=== PATIENT | female | born 1970 | race Caucasian/White ===

== ENCOUNTER → 2020-11-23 03:23 | Outpatient (CLI) | payer BC, SELFPAY ==
[2020-11-24 04:06] LABS: SARS-CoV-2 RNA PCR Negative
== END ==
PROVIDERS: PCP Family Medicine Adolescent Medicine; Visit Provider Internal Medicine Gastroenterology
DX: Z01.812 Encounter for preprocedural laboratory examination (principal); Z20.822 Contact with and (suspected) exposure to COVID-19
CPT/HCPCS: C9803; U0003; U0005

== ENCOUNTER 2020-11-26 01:59 | Day surgery (SDC) | payer BC, SELFPAY ==
[2020-11-20 13:12] VITALS: BMI 34.1
--- NOTE | 2020-11-26 06:47 | PM.HPGS ---
History of Present Illness History of Present Illness Consent: Risks, benefits, and alternatives have been discussed and questions answered. Patient agrees to proceed with procedure. Chief complaint: neoplasm screening Narrative: Juliann Hernandez is a 50 year old female referred for colon cancer screening. Review of Systems Review of Systems: All systems reviewed & are unremarkable except as noted in HPI and below PMFSH Past Medical History Medical History Hyperlipidemia Obesity Smoker Social History Social History Years smoked: 30 Smoking status: Current every day smoker Tobacco type: cigarettes Alcohol intake: current Drinks per week: 5 Living arrangements: alone Spiritual care concerns: No Meds Home Medications and Allergies Home Medications Medication Instructions Recorded Confirmed Type atorvastatin 80 mg PO DAILY 11/20/20 11/26/20 History diclofenac sodium 7 mg PO BID 11/20/20 11/26/20 History pantoprazole 40 mg PO DAILY 11/20/20 11/26/20 History venlafaxine 112.5 mg PO BID 11/20/20 11/26/20 History Allergies Allergy/AdvReac Type Severity Reaction Status Date / Time No Known Allergies Allergy Verified 11/26/20 08:54 Exam Resp: Auscultation: clear to auscultation bilaterally Cardio: Rate: regular rate Rhythm: regular rhythm GI: GI Palp: Yes Soft to palpation and No Tenderness to palpation present (GI) Assessment and Plan Assessment and plan (1) Colon cancer screening: Code(s): Z12.11 - Encounter for screening for malignant neoplasm of colon Status: Acute Assessment and Plan: Colonoscopy with possible biopsy or polypectomy or cautery or injection of substances.
[2020-11-26 08:55] VITALS: BP 134/87; PULSE 94; RESP 16; TEMP 36.2; O2SAT 97; BMI 32.8
[2020-11-26] MEDS: LACTATED RINGERS 1,000 ML 150 ML IV CONT (09:06)
--- NOTE | 2020-11-26 09:18 | WPDANESEPPF ---
Anes - Initial Pre Proc Eval Procedure: Operation Date: 11/26/20 09:30 Proposed Procedures p Screening Colonoscopy - Pancho Boucher MD Date/Time: 11/26/20 09:18 Surgeon: Pancho Boucher MD Pre Op Diagnosis: neoplasm screening Patient Data Age: 50 Gender: F Height: 1.65 m Weight: 89.4 kg Last Vital Signs Temp 36.2 C L 11/26/20 08:55 Pulse 94 11/26/20 08:55 Resp 16 11/26/20 08:55 BP 134/87 11/26/20 08:55 Pulse Ox 97 11/26/20 08:55 Allergies Allergy/AdvReac Type Severity Reaction Status Date / Time No Known Allergies Allergy Verified 11/26/20 08:54 Home Medications Medication Instructions Recorded Confirmed Type atorvastatin 80 mg PO DAILY 11/20/20 11/26/20 History diclofenac sodium 7 mg PO BID 11/20/20 11/26/20 History pantoprazole 40 mg PO DAILY 11/20/20 11/26/20 History venlafaxine 112.5 mg PO BID 11/20/20 11/26/20 History Patient hx anesthesia problems: none Family hx anesthesia problems: none PMFSH Past Medical History Medical History Hyperlipidemia Obesity Smoker Social History Social History Years smoked: 30 Smoking status: Current every day smoker Tobacco type: cigarettes Alcohol intake: current Drinks per week: 5 Living arrangements: alone Spiritual care concerns: No Anes - Eval Final PreProcedure Day of Procedure 11/26/20 09:18 Patient weight: obese Heart: regular rate and rhythm Lungs: clear to auscultation Airway: Mallampati scale class II Neurological: alert and oriented Last oral intake: >/= 8 hours ASA classification: III Emergent: no Anesthetic plan: proceed Anesthesia type and monitoring: general GIVS and standard monitoring Informed Consent: The patient's anesthetic plan and its attendant risks and benefits were discussed with the patient/family/POA. Questions were solicited and answers provided to the satisfaction of the patient/family/POA.
[2020-11-26 10:04] VITALS: BP 140/88; PULSE 78; RESP 18; O2SAT 98
[2020-11-26 10:14] VITALS: BP 150/85; PULSE 76; RESP 15; O2SAT 99
[2020-11-26 10:24] VITALS: BP 146/89; PULSE 72; RESP 16; O2SAT 100
--- NOTE | 2020-11-26 10:35 | SUR.PHASEII ---
Patient's L. hand hit up against wall during transport between intraop to post op. Patient states that hand is a little sore, but ok overall. Left hand has small bump where incident occurred.
== END 2020-11-26 10:37 | disposition home or self-care (01) ==
PROVIDERS: PCP Family Medicine Adolescent Medicine; Visit Provider Internal Medicine Gastroenterology
PROC: 0DJD8ZZ Inspection of Lower Intestinal Tract, Via Natural or Artificial Opening Endoscopic (ICD-10-PCS; CPT 45378; principal; 2020-11-26 09:30)
DX: Z12.11 Encounter for screening for malignant neoplasm of colon (principal); E66.9 Obesity, unspecified; F17.200 Nicotine dependence, unspecified, uncomplicated
CPT/HCPCS: 45378; C9803; J2704; J7120; U0003; U0005

== ENCOUNTER 2022-05-28 08:06 | Emergency (ER) | payer BC, SELFPAY ==
--- NOTE | 2022-05-28 08:16 | ED.URI ---
HPI - URI/Sore Throat General Chief Complaint: Upper Respiratory Infection Stated Complaint: Cough Time Seen by Provider: 05/28/22 08:16 Source: patient Mode of arrival: ambulatory Limitations: no limitations History of Present Illness HPI Narrative: 52-year-old female presents with complaint sinus congestion, cough for approximately 10 days. Reports congestion getting progressively worse With sinus pressure. Is taking [id number] multi symptom relief Mucinex and continues to have symptoms. Reports that cough is worse at night. Afebrile. Denies chest pain and shortness of breath. Patient is a current everyday smoker. No history of asthma or COPD. All systems reviewed and negative except as noted above. Related Data Allergies Allergy/AdvReac Type Severity Reaction Status Date / Time amoxicillin Allergy Mild rash Verified 05/28/22 08:14 Review of Systems Review of Systems: CONSTITUTIONAL: Denies fever, chills, or sweats. EYES: Denies visual changes, redness, or discharge. ENT: Reports rhinorrhea, congestion, sore throat. Denies otalgia. CARDIOVASCULAR: Denies chest pain, palpitations, or edema. RESPIRATORY: reports cough. Denies dyspnea. GASTROINTESTINAL: Denies abdominal pain, nausea, vomiting, or diarrhea. GENITOURINARY: Denies dysuria or hematuria. SKIN: Denies rash or itching. MUSCULOSKELETAL: Denies back pain, joint pain, or myalgia. NEUROLOGIC: Denies headache, numbness, or weakness. PSYCHIATRIC: Denies anxiety or depression. All other systems reviewed are negative, except as documented in HPI. [facility] Past Medical History Medical History Hyperlipidemia Obesity Smoker Family History Family History (Updated 08/29/21 @ 09:59 by Andreea Huerta MA) Other Breast cancer Grandparent Diabetes mellitus Sibling Diabetes mellitus Mother Hypertension Social History Social History (Updated 08/29/21 @ 10:00 by Andreea Huerta MA) Years smoked: 30 Smoking status: Current every day smoker Tobacco type: cigarettes Second hand tobacco smoke exposure: Yes Alcohol intake: current Drinks per week: 5 Substance use: never Substance use type: does not use Living arrangements: alone Occupation/Education: occupation Gender identity (if verbalized by the patient): Female Sexual Orientation (if Verbalized by the Patient): Straight or Heterosexual Spiritual care concerns: No Agree to blood products: Yes Comments At time of signature, agree with nursing past medical, surgical, social and family history. There is no relevant family history pertinent to the presenting complaint. Exam Narrative: GENERAL: This is a well-nourished, well-developed patient, in no apparent distress. HEAD: normocephalic, atraumatic. EYES: PERRL. Sclera clear/white. Vision is grossly intact. EARS: External ears normal, auditory canals clear and without drainage, TMs normal without perforation. Hearing grossly intact. NOSE: External nose normal with minor congestion, erythema to both nares. Bilateral maxillary sinus tenderness. THROAT: Mucous membranes moist, Postnasal drainage. NECK: Neck supple, non-tender without lymphadenopathy, masses or thyromegaly. CARDIOVASCULAR: Regular rate and rhythm without murmurs, gallops, or rubs. RESPIRATORY: Clear to auscultation. Breath sounds equal bilaterally. No wheezes, rales, or rhonchi. SKIN: warm, Dry, intact with no suspicious lesions or rash, good texture and turgor. NEURO: awake, alert, and oriented to person, place and time. There were no obvious focal neurologic abnormalities. EXTREMITIES: No joint tenderness, effusion, or edema noted. Course Course Level of Care: Express Care Visit Vital Signs Vital signs: Reviewed MDM - URI/Sore Throat MDM Narrative Medical decision making narrative: Patient is aware of diagnosis, understands and agrees to treatment plan. Anticipatory guidance given. Patient agrees to follow-up as directed and i
[2022-05-28 08:17] VITALS: BP 154/92; PULSE 82; RESP 16; TEMP 36.8; O2SAT 98
== END 2022-05-28 08:37 | disposition home or self-care (01) ==
PROVIDERS: Emergency Provider Nurse Practitioner Family; PCP Family Medicine Adolescent Medicine
DX: J01.90 Acute sinusitis, unspecified (principal); R05.9 Cough, unspecified; F17.210 Nicotine dependence, cigarettes, uncomplicated; E78.5 Hyperlipidemia, unspecified; E66.9 Obesity, unspecified; Z68.34 Body mass index [BMI] 34.0-34.9, adult
CPT/HCPCS: 99213; G0463

== ENCOUNTER 2024-03-14 09:33 | Emergency (ER) | payer SELFPAY ==
[2024-03-14] VITALS (43 sets, daily range): BP systolic 116–140; BP diastolic 66–121; PULSE 57–82; RESP 10–23; TEMP 36.2–36.8; O2SAT 96–100
--- NOTE | ~2024-03-14 | XR_ITS ---
EXAMINATION: XR ankle LT 2V DATE: 03/14/2024 10:20 INDICATION: Postreduction left ankle fracture TECHNIQUE: Anteroposterior and lateral views of the left ankle were obtained. COMPARISON: None. FINDINGS: Interval partial reduction of the previously seen left ankle fracture with Fiberglas splinting about the left foot and ankle which mildly obscures fine bone and soft tissue detail. There is residual 6 m m posterior and 5 mm lateral displacement and without angulation of the oblique fracture of the dista l left fibular metaphyseal region. There is also been significant improvement of alignment of the pos terior malleolar fracture of the distal left tibia with approximately 4 mm residual posterior and pro ximal displacement and mild posterior angulation. There is no evident medial malleolar fracture. Ankl e mortise appears congruent. Small fracture fragment along the anterior margin of the tibial plafond and. Joint spaces are relatively preserved. Moderate-sized Achilles and plantar calcaneal spurs. IMPRESSION: 1. Significant improvement in alignment post reduction of the lateral and posterior malleolar fractur es of the left ankle with mild central displacement as detailed above. Reviewed, dictated and finalized at location A. RTMENT CHAIR IMPRESSION: 1. Significant improvement in alignment post reduction of the lateral and poste rior malleolar fractures of the left ankle with mild central displacement as de tailed above.
--- NOTE | ~2024-03-14 | CT_ITS ---
EXAMINATION: CT ankle LT wo con DATE: 03/14/2024 13:03 INDICATION: Trimalleolar left ankle fracture. TECHNIQUE: Computed tomography (CT) of the left ankle was performed without intravenous contrast. Aut omated exposure control and iterative reconstruction technique were employed. The dose-length product was 418.51 mGy-cm. COMPARISON: Left ankle radiographs 03/14/2024 FINDINGS: There is a comminuted fracture of distal fibula. The main distal fracture fragment demonstr ates 8 mm posterior displacement, 6 mm shortening, and 2 mm lateral displacement. There is a comminut ed fracture of posterior malleolus. The main posterior fracture fragment demonstrates 4 mm proximal d isplacement and 4 mm lateral displacement. There is a comminuted, predominantly oblique fracture of m edial malleolus. The main distal fracture fragment demonstrates 4 mm distraction anteriorly. There ar e multiple loose bodies in the ankle joint. There is mild osteoarthritis of the ankle joint and many of the midfoot joints. There are enthesophytes at the posterior and plantar aspects of calcaneal tube rosity. IMPRESSION: 1. Trimalleolar ankle fracture. Reviewed, dictated and finalized at location A. ER SEAL
--- NOTE | ~2024-03-14 | XR_ITS ---
Left ankle Technique: AP, oblique, and lateral views were obtained. Clinical History: Performed Findings: There is an oblique, markedly displaced fracture of the distal fibular shaft. There is comp lete medial dislocation of both the distal tibia and fibula with respect to the talar dome. Probable fracture of the medial malleolus. Questionable posterior malleolus fracture. There is marked widening of the anterior aspect of the ankle mortise on lateral view. There is diffuse soft tissue swelling. Impression: Markedly displaced oblique fracture of the distal fibular shaft with complete medial dislocation of t he distal tibia and fibula with respect to the talar dome. Suspected additional medial and posterior malleolus fractures, these are somewhat poorly delineated d ue to limitations in patient positioning. Reviewed, dictated and finalized at location M. MAKING MACHINE OPERATOR Impression: Markedly displaced oblique fracture of the distal fibular shaft with complete m edial dislocation of the distal tibia and fibula with respect to the talar dome . Suspected additional medial and posterior malleolus fractures, these are somewh at poorly delineated due to limitations in patient positioning.
[2024-03-14] MEDS: HYDROmorphone HCL INJ (*CRX) 1 MG/ML SYR IV PUSH (09:45)
[2024-03-14] MEDS: ONDANSETRON INJ 4 MG/2 ML VIAL IV PUSH (09:45)
--- NOTE | 2024-03-14 09:52 | ED_ITS ---
HPI - Fall General Chief Complaint: Fall Stated Complaint: fall, ankle deformity Time Seen by Provider: 03/14/24 09:49 Source: patient Mode of arrival: EMS Limitations: no limitations History of Present Illness HPI Narrative: Patient presents with an obvious left ankle deformity after she slipped and fell on ice. She is not on anticoagulation. She is in tremendous pain. No prior orthopedic procedure in no prior injuries to this extremity. Related Data Allergies Allergy/AdvReac Type Severity Reaction Status Date / Time amoxicillin Allergy Mild rash Verified 03/14/24 16:20 PMFSH Past Medical History Medical History Hyperlipidemia Obesity Smoker Family History Family History Other Breast cancer Grandparent Diabetes mellitus Sibling Diabetes mellitus Mother Hypertension Social History Social History Years smoked: 30 Smoking status: Current every day smoker Tobacco type: cigarettes Second hand tobacco smoke exposure: Yes Alcohol intake: current Drinks per week: 5 Substance use: never Substance use type: does not use Living arrangements: alone Occupation/Education: occupation Gender identity (if verbalized by the patient): Female Sexual Orientation (if Verbalized by the Patient): Straight or Heterosexual Spiritual care concerns: No Agree to blood products: Yes Exam Narrative: GENERAL: well-nourished, in moderate acute distress. HEAD: Normocephalic, atraumatic. EYES: Non injected, non icteric ENT: Nares clear, no rhinorrhea or epistaxis. Mallampati 2. Patient can open mouth wide without trismus or other significant limitation. NECK: Supple. Not particularly full. No micrognathia. CHEST: Speaking in full sentences. No respiratory distress. HEART/Cardiovascular: Regular rate and rhythm. Difficult to palpate left DP. Thready Dopplerable pulse at DP on left. ABDOMEN: Soft, nondistended. EXTREMITIES: Obvious deformity to left ankle with left ankle joint dislocated and left foot externally rotated. SKIN: Warm, dry, no rash. Skin intact but ecchymotic. NEURO: Alert and oriented x3. PSYCH: Congruent mood and affect. Course Vital Signs Vital signs: Vital Signs Pulse Oximetry 100 03/14/24 09:41 Temperature 98.3 F 03/14/24 16:10 Pulse Rate 61 03/14/24 16:10 Respiratory Rate 15 03/14/24 16:10 Blood Pressure 121/67 03/14/24 16:10 Pulse Oximetry 99 03/14/24 16:10 Oxygen Delivery Room Air 03/14/24 11:05 Oxygen Flow Rate 2 03/14/24 10:10 Procedures Orthopedic Fracture Reduction Fracture #1: Fracture Reduction date: 03/14/24 Time Out Performed: Yes Side: left Fracture Reduction Location: tibia and fibula Analgesia: procedural sedation Pre-Procedure Neuro Vascular Exam: abnormal (thready pulse; faintly Do pplerable) Technique: direct manipulation and traction/counter-traction Post Reduction X-rays Demonstrate: acceptable reduction Post-reduction neuro exam: intact Post-reduction vascular exam: intact Splint Applied: Yes Patient Tolerated Procedure: well and no complications Orthopedic Joint Reduction Joint #1: Orthopedic Joint Reduction Date: 03/14/24 Time Out Performed: Yes Side: left Joint Reduction Location: ankle Analgesia: procedural sedation Pre-Procedure Neuro Vascular Exam: abnormal (as above) Technique used: traction/counter-traction Post-reduction neuro exam: intact Post-reduction vascular: intact Post Reduction X-Ray Obtained: Yes Post Reduction X-Ray Results: reduced Splint Applied: Yes Patient Tolerated Procedure: well and no complications Orthopedic Splinting/Casting Injury #1: Splinting/Casting Date: 03/14/24 Side: left Lower Extremity Injury Location: ankle Lower Extremity Immobilizer: posterior splint and stirrup splint Splint: prefabricated OCL: stirrup Pre-Procedure Neuro Vascular Exam: abnormal Post-Procedure Neuro Vascular Exam: normal Additional Comments: assisted RICHARD Jade with applying splint Procedural Sedation Procedural Sedation #1: Procedural Sedation Date: 03/14/24 Presedation Evaluation: Airway evaluated and without obvious complications anticipated, hemodynamically stable. Has received anesthesia before without complication. Allergy (amoxicillin) reviewed. Provider Performed: sedation and procedure Time Out: performed Informed Consent Obtained: yes Equipment in Room: bag and mask, capnography, surveillance monitor, crash cart, oxygen, pulse oximeter and suction Plan for Sedation: moderate sedation ASA Class: II (hyperlipidema, obesity, smoker per review of EMR) Mallampati Classification: class II NPO Status: unknown Explanation to Patient/Family: Risk/Benefits/Alternatives and Pt/Family agreed with plan Pt. Educated on Procedural Sedation: Yes Preparation: surveillance monitor applied, pulse oximeter, supplemental O2 applied (after brief hypoxia), suction/airway equipment at bedside and IV secured Fentanyl: IV Fentanyl dose (mcg): 50 IV Propofol dose (mg): 75 Patient Tolerated Procedure: well Interventions: oxygen applied and assist by BVM Additional Comments: brief hypoxia and hypoventilation but normalized with supplemental oxygen and required bagging via BVM for approximately 15-30seconds Pulse Oximetry Interpretation Digit-Finger: Pulse Oximetry Interpretation Date: 03/14/24 Initial pulse oximetry readin Additional Comments: desaturated during sedation, supplemental O2 applied, improved to 92% then hypoventilation, BVM for 15-30 seconds with improved saturation to >96% and sternal rub for spontaneous respirations then saturating and with appropriate rate MDM - Fall MDM Narrative Medical decision making narrative: Patient presents with an obvious left ankle injury after slipping and falling on the ice. She has an obvious fracture and dislocation of this extremity and appears to be neurovascularly compromise given it is difficult to palpate a DP pulse. Thready dopplerable pulse. In the emergency department they are afebrile with vital signs within normal limits. Procedural sedation and dislocation/fracture reduction performed as above. Discussed with Dr. Chou who recommends getting CT imaging. Discussed findings with him and he is concerned based on the degree of comminuted posterior malleolus fracture that she would require the [facility] a tertiary care service as this may require a posterior surgical approach and especially given her age. He does note that if they are comfortable seeing her outpatient as an alternative he would strongly recommend that she remain absolutely nonweightbearing and recline as much as possible with her foot elevated above the level of the heart. Patient has never received care through either of the other main hospital systems and she states that and she does not particularly have a preference but ultimately states that [facility] would be fine. Given this is a trauma [facility] transfer center does connect me with ED attending Dr Alcocer who will be accepting. Patient is made aware that she may sit in the waiting room for considerable amount of time and that there is no guarantee that surgical intervention would happen today. She verifies understanding. We did discuss that she has the option of going by ambulance which we would arrange versus private vehicle (patient had noted concerns of cost based on the fact that she does not have insurance) and she did decide ambulance. EMS transportation arranged. Critical Care: 1 or more vital organ systems impaired with a high probability of loss/morbidity of limb requiring frequent personal assessment and manipulation of the patient's condition. This included time spent evaluating/speaking with the patient, reviewing/interpreting imaging studies, discussing the case with consultants (orthopedic / transfer team), retrieving data and reviewing charts, monitoring for decompensation, documenting the visit, and performing bundled procedures EXCLUSIVE of separately billed procedures. Imaging Data Attestation: I personally reviewed and interpreted this imaging study as follows: My impression: Obvious fracture and dislocation with improvement on postprocedure imaging on my independent interpretation Radiologist's impression: Impressions Ankle X-Ray 03/14/24 10:16 Impression: Markedly displaced oblique fracture of the distal fibular shaft with complete medial dislocation of the distal tibia and fibula with respect to the talar dome. Suspected additional medial and posterior malleolus fractures, these are somewhat poorly delineated due to limitations in patient positioning. Ankle X-Ray 03/14/24 10:24 IMPRESSION: 1. Significant improvement in alignment post reduction of the lateral and posterior malleolar fractures of the left ankle with mild central displacement as detailed above. Ankle CT 03/14/24 13:06 IMPRESSION: 1. Trimalleolar ankle fracture. Critical Care Time Critical Care Time Critical Care Time: Yes Total Critical Care Time: 30 Discharge Plan Discharge Clinical Impression: Fall with injury, Fracture of distal end of fibula, Dislocation of distal tibia, Dislocation of distal end of fibula, Fracture of lateral malleolus, Closed fracture of posterior malleolus Patient Disposition: Acute Care Hospital Condition: Stable Prescriptions: No Action loratadine [Claritin] 10 mg tablet 10 mg PO DAILY Qty: 30 0RF Hold Instructions: needs appt aripiprazole [Abilify] 2 mg tablet 2 mg PO QHS Qty: 30 0RF atorvastatin 80 mg tablet 80 mg PO DAILY Qty: 90 1RF Hold Instructions: Needs APPT pantoprazole 40 mg tablet,delayed release (DR/EC) See Rx Instructions .ROUTE .COMPLEX Qty: 90 1RF Hold Instructions: needs appt Dose Instruction: TAKE 1 TABLET BY MOUTH EVERY DAY Rx Instructions: TAKE 1 TABLET BY MOUTH EVERY DAY diclofenac sodium 75 mg tablet,delayed release (DR/EC) 75 mg PO BID Qty: 180 2RF Hold Instructions: Needs appt venlafaxine 75 mg tablet See Rx Instructions .ROUTE .COMPLEX Qty: 120 0RF Hold Instructions: needs appt Dose Instruction: TAKE 2 TABLETS BY MOUTH TWICE A DAY Rx Instructions: TAKE 2 TABLETS BY MOUTH TWICE A DAY Follow-up/Referrals: Tulio Felipe MD [Primary Care Provider] - Time of Disposition: 15:09
[2024-03-14] MEDS: fentaNYL CITRATE INJ (*CRX) 100 MCG/2 ML VIAL 50 MCG IV PUSH ×2 (10:05→16:24)
[2024-03-14] MEDS: PROPOFOL IV EMULSION 200 MG/20 ML VIAL 75 MG IV PUSH (10:05)
[2024-03-14] MEDS: ACETAMINOPHEN 500 MG TABLET 1000 MG PO (12:46)
[2024-03-14] MEDS: MORPHINE SULFATE (*CRX) 4 MG/ML INJ IV PUSH (13:40)
== END 2024-03-14 16:02 | disposition short-term general hospital (02) ==
PROVIDERS: Emergency Provider Student in an Organized Health Care Education/Training Program; PCP Family Medicine Adolescent Medicine
DX: S82.832A Other fracture of upper and lower end of left fibula, initial encounter for closed fracture (principal); S82.852A Displaced trimalleolar fracture of left lower leg, initial encounter for closed fracture; S93.05XA Dislocation of left ankle joint, initial encounter; W00.0XXA Fall on same level due to ice and snow, initial encounter; E78.5 Hyperlipidemia, unspecified; F17.210 Nicotine dependence, cigarettes, uncomplicated
CPT/HCPCS: 27788; 73600; 73610; 73700; 96374; 96375; 96376; 99285; A9270; J1171; J2270; J2405; J2704; J3010

== ENCOUNTER 2024-08-12 01:24 | Day surgery (SDC) | payer OTHER, SELFPAY ==
[2024-08-03 11:38] VITALS: BMI 31.4
--- OUTSIDE RECORDS SUMMARY | 2024-08-12 01:27 | XMS_ITS | Referral Summary ---
Author Organization [facility] al Address [address] [place] [address] Care Team Providers Care Nuclear Medical Tech Name Role Phone Tulio Felipe MD Primary Care Prov ider Encounters Date Type Department Care Team Description 06/10/2024 11:52 AM AUTO BODY BUILDER APPRENTICE - 06/10/2024 11:59 PM AUTO BODY BUILDER APPRENTICE Hospital Encounter [facility] Radiology [address] [place] [address] Closed trimalleolar fracture of left ankle with routine healing, subsequent encounter Discharge Disposition: Discharge to home or self care 06/10/2024 12:30 PM AUTO BODY BUILDER APPRENTICE [facility] [address] [facility] 4th Floor [address] [place] [address] Closed trimalleolar fracture of left ankle with routine healing, subsequent encounter (Primary Dx) from Last 3 Months Allergies Active Allergy Reactions Criticality Noted Date Comments Amoxicillin Hives Medium 03/14/2024 Medications venlafaxine (EFFEXOR) 75 mg tablet Take 2 tablets (150 mg total) by mouth 2 (two) times a day 02/26/[address] (VOLTAREN) 75 mg EC tablet Take 1 tablet (75 mg total) by mouth 2 (two) times a day 12/25/2023 Active docosahexaenoic acid/epa (FISH OIL ORAL) Take 1 tablet by mouth every morning Active cyanocobalamin, vitamin B-12, (VITAMIN B-12 ORAL) Take 1 tablet by mouth every morning Active cholecalciferol , vitamin D3, (VITAMIN D3 ORAL) Take 1 tablet by mouth every morning Active aspirin 81 mg enteric coated tablet Take 1 tablet (81 mg total) by mouth 2 (two) times a day for 14 days For blood clot prevention. Take with food. 28 tablet 03/21/2024 Active senna-docusate (PERICOLACE) 8.6-50 mg Take 1 tablet by mouth daily 14 tablet 03/21/2024 Active senna-docusate (PERICOLACE) 8.6-50 mg Take 2 tablets by mouth 2 (two) times a day 30 tablet 1 03/28/2024 Active HYDROcodone-christo taminophen (NORCO) 5-325 mg per tabletIndicatio ns:Pain Take 1-2 tablets by mouth every 6 (six) hours as needed for pain 28 tablet 04/07/2024 Active traMADoL (ULTRAM) 50 mg tablet Take 1 tablet (50 mg total) by mouth every 6 (six) hours as needed for pain 28 tablet 04/16/2024 Active Active Problems Patient Care Coordination No te Formatting of this note migh t be different from the original. Mechanism of Injury: SLMF 03/14/24 Dx: L trimal ankle fx/dl Surgeries: 03/21/2024: ORIF L trimal ankle fx/dl Last Clinic Visit: 04/29/24 Progress to weight-bearing as tolerated in Cam boot Pain meds: OTC p.r.n. Okay to shower, do not submerge incisions Home exercise program for ankle range motion Follow-up in 6 weeks with repeat x-rays of the left ankle Upcoming Clinic Visit: 06/10/24 WBAT in CAM Boot XR Left Ankle (Orders Placed) Does Insurance Qualify for In Clinic PT? No IDPA/IDPA Problem Noted Date Diagnosed Date Closed trimalleolar fracture of left ankle, initial encounter 03/15/2024 Closed displaced trimalleola r fracture of left lower leg with routine healing 03/15/2024 Closed trimalleolar fracture of left ankle 03/14 Immunizations Immunization Administration Dates Next Due ZOSTER Recombinant 08/06/2020 Social History Tobacco Use Types Packs/Day Years Used Date Smoking Tobacco: Every Day Cigarettes 0.5 40.3 Started: 1984 Passive Smoke Exposure: Never Smokeless Tobacco: Never Tobacco Cessation:Ready to Q uit: Not Asked; Counseling Given: Yes AUDIT-C Answer Date Recorded Q1: How often do you have a drink containing alcohol? Never 04/29/2024 Q2: How many drinks containi ng alcohol do you have on a typical day when you are drinking? Patient does not drink Q3: How often do you have si x or more drinks on one occasion? Never 04/29/2024 Hunger Vital Sign Answer Date Recorded Within the past 12 months, y ou worried that your food would run out before you got the money to buy more. Never true 06/10/19 25 Within the past 12 months, t he food you bought just didn't last and you didn't have money to get more. Never true 06/10/2024 Personal Safety Answer Date Recorded Have you ever been in or are you currently in a harmful physical or emotional relationship or is someone making you feel afraid or unsafe? Denies 03/21/2024 Comments No Sex and Gender Information Value Date Recorded Sex Assigned at Not on file Legal Sex Female 5:53 PM AUTO BODY BUILDER APPRENTICE Gender Identity Not on file Sexual Orientation Not on file Last Filed Vital Signs Vital Sign Reading Time Taken Comments Blood Pressure 155/67 03/21/2024 2:10 PM AUTO BODY BUILDER APPRENTICE Pulse 83 03/21/2024 2:20 PM AUTO BODY BUILDER APPRENTICE Temperature 36.2 C (97.2 F) 03/21/2024 1:30 PM AUTO BODY BUILDER APPRENTICE Respiratory Rate 14 03/21/2024 2:20 PM AUTO BODY BUILDER APPRENTICE Oxygen Saturation 95% 03/21/2024 2:20 PM AUTO BODY BUILDER APPRENTICE Inhaled Oxygen Concentration - - Weight 78.9 kg (174 lb) 03/21/2024 8:42 AM AUTO BODY BUILDER APPRENTICE Height 162.6 cm (5' 4 ) 03/15/2024 3:12 PM AUTO BODY BUILDER APPRENTICE Body Mass Index 29.87 03/15/2024 3:12 PM AUTO BODY BUILDER APPRENTICE Plan of Treatment Not on file Medical Devices Implanted Type Area Inspector Health Care Facilities Device Identifier Shelf Expiration Date Model / Serial / Lot [employer] r[employer]o Evos Mini 38mm 5 Hole Geetha Low Profile Variable Angle Small Bone [id number] - [id number] Implanted:Qty: 1 on 03/21/2024 by Indra Landis MD at [facility] Left: Ankle [employer]/Or tho [id number] / / [employer] Evos Mini 2.7mm 4.5mm 21mm Self Tap Cortex T8 Screw Bone [id number] - [id number] Implanted:Qty: 1 on 03/21/2024 by Indra Landis MD at [facility] Left: Ankle [employer]/Or tho [id number] / / [employer] r[employer]o Evos Mini 4mm 4.5mm 34mm Variable Angle Self Retaining [id number] - [id number] Implanted:Qty: 1 on 03/21/2024 by Indra Landis MD at [facility] Left: Ankle [employer]/Or tho [id number] / / [employer] r[employer]o Evos 3.5mm 60mm Self Tap Cortex Screw Bone Sterile [id number] - [id number] Implanted:Qty: 2 on 03/21/2024 by Indra Landis MD at [facility] Left: Ankle [employer]/Or tho [id number] / / [employer]/O rtho Screw Bone Cortical St Short Thread Evos 2.4x16mm Ss [id number] - [id number] Implanted:Qty: 1 on 03/21/2024 by Indra Landis MD at [facility] Left: Ankle [employer]/Or tho [id number] / / [employer] r[employer]o Evos Mini 140mm 20 Hole Strenght Low Profile Variable Angle Small [id number] - [id number] Implanted:Qty: 1 on 03/21/2024 by Indra Landis MD at [facility] Left: Ankle [employer]/Or tho [id number] / / [employer]/O rtho 2.7mm 4.5mm 34mm Self Retaining Screwdriver Self Tap Flat Head [id number] - [id number] Implanted:Qty: 1 on 03/21/2024 by Indra Landis MD at [facility] Left: Ankle [employer]/Or tho [id number] / / [employer]/O rtho 2.7mm 4.5mm 28mm Self Tap Cortex T8 2mm Screw Bone Evos [id number] - [id number] Implanted:Qty: 1 on 03/21/2024 by Indra Landis MD at [facility] Left: Ankle [employer]/Or tho [id number] / / [employer] r[employer]o Evos Mini 2.7mm 4.5mm 40mm Self Tap Log Snaker Long Bone Small Bone [id number] - [id number] Implanted:Qty: 1 on 03/21/2024 by Indra Landis MD at [facility] Left: Ankle [employer]/Or tho [id number] / / [employer]o Evos 2.7mm 9mm Self Tap Self Retaining Drive Small Bone Long Bone [id number] - [id number] Implanted:Qty: 2 on 03/21/2024 by Indra Landis MD at [facility] Left: Ankle [employer]/Or tho [id number] / / [employer]/O rtho 2.7mm 4.5mm 20mm Self Retaining Screwdriver Self Tap Flat Head [id number] - [id number] Implanted:Qty: 1 on 03/21/2024 by Indra Landis MD at [facility] Left: Ankle [employer]/Or tho [id number] / / [employer] r[employer]o Evos 2.7mm 4.5mm 10mm Self Tap Cortex T8 Screw Bone Mini Plate [id number] - [id number] Implanted:Qty: 1 on 03/21/2024 by Indra Landis MD at [facility] Left: Ankle [employer]/Or tho [id number] / / [employer]/O rtho Evos Mini 2.7mm 4.5mm 20mm Self Tap Cortex T8 Screw Bone [id number] - [id number] Implanted:Qty: 2 on 03/21/2024 by Indra Landis MD at [facility] Left: Ankle [employer]/Or tho [id number] / / Procedures Procedure Name Priority Date/Time Associated Diagnosis Comments XR ANKLE LEFT 3 OR MORE VIEWS Schedule Routine, Read Routine (OP Routine) 06/10/2024 12:00 PM AUTO BODY BUILDER APPRENTICE Closed trimalleolar fracture of left ankle with routine healing, subsequent encounter from Last 3 Months Results * XR Ankle Left 3 or More Views (06/10/2024 12:00 PM AUTO BODY BUILDER APPRENTICE) Anatomical Region Laterality Modality Lower Extremities, Ankle Left Compute d Radiography 06/10/2024 12:4 7 PM AUTO BODY BUILDER APPRENTICE Impressions 06/10/2024 12:47 PM AUTO BODY BUILDER APPRENTICE 1. Healing reduced and internally fixated trimalleolar fracture. Electronically signed by: Lukasz Elizabeth MD Narrative 06/10/2024 12:47 PM AUTO BODY BUILDER APPRENTICE EXAMINATION: XR ANKLE LEFT 3 OR MORE VIEWS HISTORY: Ankle pain. FINDINGS: Comparison 04/29/2024. Healing reduced and internally fixated trimalleolar fracture. Hardware is intact. No new fractures. Disuse osteopenia. Talar dome is intact. Joint spaces grossly preserved. Small plantar calcaneal spur and Achilles enthesophyte. Procedure Note Lukasz Elizabeth MD - 06/10/2024 EXAMINATION: XR ANKLE LEFT 3 OR MORE VIEWS HISTORY: Ankle pain. FINDINGS: Comparison 04/29/2024. Healing reduced and internally fixated trimalleolar fracture. Hardware is intact. No new fractures. Disuse osteopenia. Talar dome is intact. Joint spaces grossly preserved. Small plantar calcaneal spur and Achilles enthesophyte. IMPRESSION: 1. Healing reduced and internally fixated trimalleolar fracture. Electronically signed by: Lukasz Elizabeth MD Selvin Mckay MD IMG XR PROCEDURES Final Result from Last [address] [place] [address] IDPA [facility] Advance Directives For more information, please contact: [phone] * Full Code (Latest Code Status on File) Date Activated Date Inactivated Comments 03/15/2024 3:15 AM 03/15/2024 6:35 PM Care Teams Nuclear Medical Tech Relationship Specialty Start Date End Date Tulio Felipe MD [address] [place] [address] PCP - General Family Medicine 03/14/24
--- OUTSIDE RECORDS SUMMARY | 2024-08-12 01:27 | XMS_ITS | Clinical Summary ---
Author Organization [facility] Address [address] [place] [address] Care Team Providers Care Warehouse Pricing And Inventory Clerk Name Role Phone Tulio Felipe MD Primary Care Prov ider Allergies Active Allergy Reactions Criticality Noted Date [...] Closed trimalleolar fracture of left ankle 03/14 Encounters Date Type Department Care Team Description 06/10/2024 12:30 PM MERCHANDISING EXECUTION MANAGER [facility] [address] [place] [address] 4th [address] [place] [address] Closed trimalleolar fracture of left ankle with routine healing, subsequent encounter (Primary Dx) 06/10/2024 11:52 AM MERCHANDISING EXECUTION MANAGER - 06/10/2024 11:59 PM MERCHANDISING EXECUTION MANAGER Hospital Encounter [facility] Radiology [address] [place] [id number] Closed trimalleolar fracture of left ankle with routine healing, subsequent encounter Discharge Disposition: Discharge to home or self care from Last 3 Months Immunizations Immunization Administration Dates Next Due ZOSTER Recombinant 08/06/2020 Surgical History Surgery Date Site/Laterality Comments PLASTIC SURGERY forehead, over 20 years ago COLONOSCOPY last one Social History Tobacco Use Types Packs/Day Years [...] on file Legal Sex Female 5:53 PM MERCHANDISING EXECUTION MANAGER Gender Identity Not on file Sexual Orientation Not on file Obstetrics History Last Filed Vital Signs Vital Sign Reading Time Taken Comments Blood Pressure 155/67 03/21/2024 2:10 PM MERCHANDISING EXECUTION MANAGER Pulse 83 03/21/2024 2:20 PM MERCHANDISING EXECUTION MANAGER Temperature 36.2 C (97.2 F) 03/21/2024 1:30 PM MERCHANDISING EXECUTION MANAGER Respiratory Rate 14 03/21/2024 2:20 PM MERCHANDISING EXECUTION MANAGER Oxygen Saturation 95% 03/21/2024 2:20 PM MERCHANDISING EXECUTION MANAGER Inhaled Oxygen Concentration - - Weight 78.9 kg (174 lb) 03/21/2024 8:42 AM MERCHANDISING EXECUTION MANAGER Height 162.6 cm (5' 4 ) 03/15/2024 3:12 PM MERCHANDISING EXECUTION MANAGER Body Mass Index 29.87 03/15/2024 3:12 PM MERCHANDISING EXECUTION MANAGER Plan of Treatment Health Maintenance Due Date Last Done Comments Breast Cancer Screening-Mammogram 1969 Cervical Cancer Screening 1969 Colon Cancer Screening-Colonoscopy 1969 Depression Screening 1969 Hepatitis C Screening 1969 DTaP/Tdap/Td Vaccine (1 - Tdap) 1980 Hepatitis B Screening 1987 Regular Well Visit/Exam 18-64 1987 Pneumococcal vaccine <65 (1 of 2 - PCV) 1988 Lung Cancer Screening 2019 Zoster Vaccine (2 of 2) 10/01/2020 08/06/2020 Influenza Vaccine (Season Ended) 2024 Medical Devices Implanted Type Area Administrative Library Assistant Device Identifier Shelf Expiration Date Model / Serial / Lot [employer]O rtho Evos Mini 38mm 5 Hole Geetha Low Profile Variable Angle Small Bone [id number] - [id number] Implanted:Qty: 1 on 03/21/2024 by Indra Landis MD at [facility] Left: Ankle [employer]Or tho [id number] / / [employer] r[employer]o Evos Mini 2.7mm 4.5mm 21mm Self Tap Cortex T8 Screw Bone [id number] - [id number] Implanted:Qty: 1 on 03/21/2024 by Indra Landis MD at [facility] Left: Ankle [employer]/Or tho [id number] / / [employer]/O rtho Evos Mini 4mm 4.5mm 34mm Variable Angle Self Retaining [id number] - [id number] Implanted:Qty: 1 on 03/21/2024 by Indra Landis MD at [facility] Left: Ankle [employer]Rich[employer]/Or tho [id number] / / [employer]/O rtho Evos 3.5mm 60mm Self Tap Cortex Screw Bone Sterile [id number] - [id number] Implanted:Qty: 2 on 03/21/2024 by Indra Landis MD at [facility] Left: Ankle [employer]/Rich[employer]/Or tho [id number] / / Lidna & Nephew/Richco/O rtho Screw Bone Cortical St Short Thread Evos 2.4x16mm Ss [id number] - [id number] Implanted:Qty: 1 on 03/21/2024 by nIdra Landis MD at [facility] Left: Ankle [employer]/Or tho [id number] / / [employer]/O rtho Evos Mini 140mm 20 Hole Strenght Low Profile Variable Angle Small [id number] - [id number] Implanted:Qty: 1 on 03/21/2024 by Indra Landis MD at [facility] Left: Ankle [employer]Rich[employer]/Or tho [id number] / / [employer]Rich[employer]/O rtho 2.7mm 4.5mm 34mm Self Retaining Screwdriver Self Tap Flat Head [id number] - [id number] Implanted:Qty: 1 on 03/21/2024 by Indra Landis MD at [facility] Left: Ankle [employer]/Or tho [id number] / / [employer]hew/Rich[employer]/O rtho 2.7mm 4.5mm 28mm Self Tap Cortex T8 2mm Screw Bone Evos [id number] - [id number] Implanted:Qty: 1 on 03/21/2024 by Indra Landis MD at [facility] Left: Ankle [employer]/Or tho [id number] / / [employer]/O rtho Evos Mini 2.7mm 4.5mm 40mm Self Tap Paper Hanger Long Bone Small Bone [id number] - [id number] Implanted:Qty: 1 on 03/21/2024 by Indra Landis MD at [facility] Left: Ankle [employer]/Or tho [id number] / / [employer]/O rtho Evos 2.7mm 9mm Self Tap Self Retaining Drive Small Bone Long Bone [id number] - [id number] Implanted:Qty: 2 on 03/21/2024 by Indra Landis MD at [facility] Left: Ankle [employer]/Or tho [id number] / / Linda [employer]hew[employer]Rich[employer]/O rtho 2.7mm 4.5mm 20mm Self Retaining Screwdriver Self Tap Flat Head [id number] - [id number] Implanted:Qty: 1 on 03/21/2024 by Indra Landis MD at [facility] Left: Ankle [employer]Rich[employer]/Or tho [id number] / / Linda [employer]hew/Rich[employer]/O rtho Evos 2.7mm 4.5mm 10mm Self Tap Cortex T8 Screw Bone Mini Plate [id number] - [id number] Implanted:Qty: 1 on 03/21/2024 by Indra Landis MD at [facility] Left: Ankle [employer]/Or tho [id number] / / Linda [employer]hew/Rich[employer]/O rtho Evos Mini 2.7mm 4.5mm 20mm Self Tap Cortex T8 Screw Bone [id number] - [id number] Implanted:Qty: 2 on 03/21/2024 by Indra Landis MD at [facility] Left: Ankle [employer]/Or tho [id number] / / Procedures Procedure Name Priority Date/Time Associated Diagnosis Comments XR ANKLE LEFT 3 OR MORE VIEWS Schedule Routine, Read Routine (OP Routine) 06/10/2024 12:00 PM MERCHANDISING EXECUTION MANAGER Closed trimalleolar fracture of left ankle with routine healing, subsequent encounter from Last 3 Months Results * XR Ankle Left 3 or More Views (06/10/2024 12:00 PM MERCHANDISING EXECUTION MANAGER) Anatomical Region Laterality Modality Lower Extremities, Ankle Left Compute d Radiography 06/10/2024 12:4 7 PM MERCHANDISING EXECUTION MANAGER Impressions 06/10/2024 12:47 PM MERCHANDISING EXECUTION MANAGER 1. Healing reduced and internally fixated trimalleolar fracture. Electronically signed by: Lukasz Elizabeth MD Narrative 06/10/2024 12:47 PM MERCHANDISING EXECUTION MANAGER EXAMINATION: XR ANKLE LEFT 3 OR MORE [...] Final Result from Last 3 Months Insurance IDMI Member Subscriber Plan / Payer (Ef fective 2024-Present) Name:Juliann Hernandez Relation to Subscriber:Self Name:Juliann Hernandez Payer ID:[id number] Group ID:Not on file Type:MEDICAID [place] Address: [place] [id number] [facility] Advance Directives For more information, please contact: [phone] * Full Code (Latest Code Status on File) Date Activated Date Inactivated Comments 03/15/2024 3:15 AM 03/15/2024 6:35 PM Care Teams Warehouse Pricing And Inventory Clerk Relationship Specialty Start Date End Date Tulio Felipe MD [address] [place] [address] PCP - General Family Medicine 03/14/24
[2024-08-12 06:45] VITALS: BP 153/93; PULSE 85; RESP 20; TEMP 35.9; O2SAT 99
[2024-08-12] MEDS: LACTATED RINGERS 1,000 ML 150 ML IV CONT (06:57)
--- NOTE | 2024-08-12 07:11 | P.PNAN_ITS ---
Anes - Initial Pre Proc Eval Procedure: Operation Date: 08/12/24 08:00 Proposed Procedures p Esophagogastroduodenoscopy - Vincent Lucia MD Date/Time: 08/12/24 07:11 Surgeon: Vincent Lucia MD Pre Op Diagnosis: GERD Patient Data Age: 54 Gender: F Height: 1.63 m Weight: 84.7 kg Last Vital Signs Temp 96.6 F L 08/12/24 06:45 Pulse 85 08/12/24 06:45 Resp 20 08/12/24 06:45 BP 153/93 H 08/12/24 06:45 Pulse Ox 99 08/12/24 06:45 O2 Del Method Room Air 08/12/24 06:45 Allergies Allergy/AdvReac Type Severity Reaction Status Date / Time amoxicillin Allergy Mild rash Verified 08/12/24 06:43 Home Medications ?Medication ?Instructions ?Recorded ?Confirmed ?Type venlafaxine 75 mg tablet See Rx Instructions .Route 05/30/24 08/12/24 Rx .COMPLEX #120 tabs pantoprazole 40 mg tablet,delayed 40 mg PO BID #180 tabs 06/06/24 08/12/24 Rx release venlafaxine 150 mg 150 mg PO DAILY #90 caps 06/06/24 08/12/24 Rx capsule,extended release 24 hr aripiprazole 5 mg tablet 5 mg PO DAILY #90 tabs 06/26/24 08/12/24 Rx Patient hx anesthesia problems: none Family hx anesthesia problems: none Results Review: All pre-operative results and documents have been reviewed as part of the pre- operative evaluation. [facility] Past Medical History Medical History Hyperlipidemia Obesity Smoker Family History Family History Other Breast cancer Grandparent Diabetes mellitus Sibling Diabetes mellitus Mother Hypertension Social History Social History Smoking packs per day: 1 Smoking cigarettes per day: 20.0 Years smoked: 25 Smoking pack-years: 25.00 Smoking status: Current every day smoker Tobacco type: cigarettes Second hand tobacco smoke exposure: Yes Alcohol intake: current Drinks per week: 5 Alcohol use details: 2-3 MONTHLY Substance use: never Substance use type: does not use Living arrangements: alone Occupation/Education: occupation Gender identity (if verbalized by the patient): Female Sexual Orientation (if Verbalized by the Patient): Straight or Heterosexual Spiritual care concerns: No Agree to blood products: Yes Anes - Eval Final PreProcedure Day of Procedure 08/12/24 07:11 Patient weight: obese Lungs: normal air movement Airway: Mallampati scale and special considerations (Multiple chipped teeth R upper aspect, none loose per pt. ) Neurological: alert and oriented Last oral intake: >/= 8 hours ASA classification: II Emergent: no Anesthetic plan: proceed Anesthesia type and monitoring: general and standard monitoring Results Review: All pre-operative results and documents have been reviewed as part of the pre- operative evaluation. Smoker 1/2 ppd, smoked at 3 am, borderline DM. Informed Consent: The patient's anesthetic plan and its attendant risks and benefits were discussed with the patient/family/POA. Questions were solicited and answers provided to the satisfaction of the patient/family/POA.
--- NOTE | 2024-08-12 07:47 | PM.IMHP ---
H&P: HPI History of Present Illness Date/Time: 08/12/24 07:47 Chief Complaint: Odynophagia Narrative: this patient has been complaining of pain referred to her throat when swallowing solid food for several years, increasingly worsening. She has been taking pantoprazole, with little help. There is no true dysphagia, unintentional weight loss or persistent heartburn. He is referred for EGD. Review of Systems Review of Systems: All systems reviewed & are unremarkable except as noted in HPI and below PMFSH Past Medical History Medical History Hyperlipidemia Obesity Smoker Family History Family History Other Breast cancer Grandparent Diabetes mellitus Sibling Diabetes mellitus Mother Hypertension Social History Social History Smoking packs per day: 1 Smoking cigarettes per day: 20.0 Years smoked: 25 Smoking pack-years: 25.00 Smoking status: Current every day smoker Tobacco type: cigarettes Second hand tobacco smoke exposure: Yes Alcohol intake: current Drinks per week: 5 Alcohol use details: 2-3 MONTHLY Substance use: never Substance use type: does not use Living arrangements: alone Occupation/Education: occupation Gender identity (if verbalized by the patient): Female Sexual Orientation (if Verbalized by the Patient): Straight or Heterosexual Spiritual care concerns: No Agree to blood products: Yes Meds Home Medications and Allergies Home Medications ?Medication ?Instructions ?Recorded ?Confirmed ?Type venlafaxine 75 mg tablet See Rx Instructions .Route 05/30/24 08/12/24 Rx .COMPLEX #120 tabs pantoprazole 40 mg tablet,delayed 40 mg PO BID #180 tabs 06/06/24 08/12/24 Rx release venlafaxine 150 mg 150 mg PO DAILY #90 caps 06/06/24 08/12/24 Rx capsule,extended release 24 hr aripiprazole 5 mg tablet 5 mg PO DAILY #90 tabs 06/26/24 08/12/24 Rx Allergies Allergy/AdvReac Type Severity Reaction Status Date / Time amoxicillin Allergy Mild rash Verified 08/12/24 06:43 Vital Signs Vital Signs - 24 hr 08/12/24 06:45 Temperature 96.6 F L Pulse Rate 85 Respiratory Rate 20 Blood Pressure 153/93 H Pulse Oximetry 99 Oxygen Delivery Room Air Exam Const: General: cooperative and healthy appearing Resp: Effort & Inspection: normal respiratory effort and able to speak in complete sentences Auscultation: clear to auscultation bilaterally Cardio: Rate: regular rate Rhythm: regular rhythm GI: Inspection: normal to inspection GI Palp: No No hepatosplenomegaly present Auscultation: normal bowel sounds Rectal Exam: deferred Skin: General skin exam: normal color Psych: Appearance: grossly normal Mental Status: mental status grossly normal Assessment and Plan Assessment and plan (1) GERD (gastroesophageal reflux disease): Qualifiers: Esophagitis presence: esophagitis presence not specified Qualified Code(s): K21.9 - Gastro-esophageal reflux disease without esophagitis Code(s): K21.9 - Gastro-esophageal reflux disease without esophagitis Status: Acute Assessment and Plan: The patient is deemed a good candidate for the procedure. Consent signed. Will proceed.
[2024-08-12 08:10] VITALS: BP 139/78; PULSE 75; RESP 17; O2SAT 99
[2024-08-12 08:20] VITALS: BP 154/87; PULSE 79; RESP 17; O2SAT 99
[2024-08-12 08:30] VITALS: BP 147/83; PULSE 72; RESP 22; O2SAT 99
== END 2024-08-12 08:37 | disposition home or self-care (01) ==
PROVIDERS: PCP Family Medicine Adolescent Medicine; Referring Provider Nurse Practitioner Family; Visit Provider Internal Medicine Gastroenterology
PROC: 0DJ08ZZ Inspection of Upper Intestinal Tract, Via Natural or Artificial Opening Endoscopic (ICD-10-PCS; CPT 43239; principal; 2024-08-12 08:00)
DX: K21.00 Gastro-esophageal reflux disease with esophagitis, without bleeding (principal); R13.10 Dysphagia, unspecified; K44.9 Diaphragmatic hernia without obstruction or gangrene; F17.210 Nicotine dependence, cigarettes, uncomplicated; E66.9 Obesity, unspecified; Z68.32 Body mass index [BMI] 32.0-32.9, adult
CPT/HCPCS: 43239; 88305; J2003; J2704; J7120